=== PATIENT | female | born 1950 | race Caucasian/White ===

== ENCOUNTER 2019-04-30 13:34 | Emergency (ER) | payer MEDICAID, MEDICARE, SELFPAY ==
[2019-04-30 13:50] VITALS: BP 110/64; PULSE 65; RESP 18; TEMP 36.3; O2SAT 98
--- NOTE | 2019-04-30 16:15 | PC.NURSE ---
called from waiting room x 3. Left without being seen after triage.
== END 2019-04-30 16:34 | disposition left against medical advice (07) ==
PROVIDERS: Emergency Provider Nurse Practitioner
CPT/HCPCS: 99281

== ENCOUNTER → 2019-06-14 13:52 | Outpatient (CLI) | payer MEDICARE, MEDICAID, SELFPAY ==
[2019-06-14 14:56] LABS: C-Reactive Protein Quant 2.8 mg/dL (<1.0); Rheumatoid Factor < 8.6 IU/mL (<12.0); Uric Acid 7.8 mg/dL (2.5-6.2)
[2019-06-14 15:09] LABS: Erythrocyte Sedimentation Rate 76 MM/HR (0-20)
[2019-06-17 15:01] LABS: ANA Screen, IFA POSITIVE (NEGATIVE)
[2019-06-17 15:40] LABS: HLA B27 NEGATIVE (Negative)
== END ==
PROVIDERS: Referring Provider Podiatrist; Visit Provider Podiatrist
DX: M79.673 Pain in unspecified foot (principal)
CPT/HCPCS: 36415; 81374; 84550; 85651; 86038; 86140; 86430